=== PATIENT | male | born 1960 | race Caucasian/White ===

== ENCOUNTER 2020-02-28 01:36 | Inpatient (IN) | payer OTHER ==
[~2020-02-28] VITALS: Ht 180.3 cm; Wt 91.8 kg
[2020-02-28] VITALS (12 sets, daily range): BP systolic 116–149; BP diastolic 59–87
[~2020-02-28 01:36] MED LIST: ATEN100T88 PO
--- NOTE | 2020-02-28 02:00 | NUR ---
YUNI CONCEPCION admitted to room 410-1, with an admitting diagnosis of POST CVA , on 02/28/20 from [facility] ED via EMS, accompanied by EMS AND DRAWER LINER . YUNI CONCEPCION introduced to surroundings, call light, bed controls, phone, TV, temperature control, lights, meal times, smoking policy, visitor policy, side rail policy, bathrooms and showers. Patient Rights given to patient in the handbook.YUNI CONCEPCION verbalizes understanding that [facility] is not responsible for the loss or damage to any personal effects or valuables that are kept in the patients posession during their hospitalization.
[2020-02-28 05:39] LABS: HEMOGLOBIN 13.2 g/dL (13.3-17.7); MEAN PLATELET VOLUME 9.9 fL (9.0-12.2); WHITE BLOOD COUNT 5.8 10^3/uL (4.3-11.0)
[2020-02-28 05:52] LABS: ALBUMIN 3.8 GM/DL (3.2-4.5); CHLORIDE 110 MMOL/L (98-107); POTASSIUM 3.8 MMOL/L (3.6-5.0); SODIUM 142 MMOL/L (135-145)
[2020-02-28 05:53] LABS: CALCIUM 9.9 MG/DL (8.5-10.1)
[2020-02-28 05:54] LABS: TRIGLYCERIDES 162 MG/DL (<150); VLDL CHOLESTEROL 32 MG/DL (5-40)
[2020-02-28 05:55] LABS: GLUCOSE 90 MG/DL (70-105); TOTAL PROTEIN 6.6 GM/DL (6.4-8.2)
[2020-02-28 05:56] LABS: CARBON DIOXIDE 22 MMOL/L (21-32)
[2020-02-28 05:57] LABS: BILIRUBIN,TOTAL 0.6 MG/DL (0.1-1.0)
[2020-02-28 05:58] LABS: ALKALINE PHOSPHATASE 74 U/L (40-136); CREATININE SERUM 1.07 MG/DL (0.60-1.30); GFR ESTIMATED > 60
[2020-02-28 05:59] LABS: CHOLESTEROL 133 MG/DL (< 200)
[2020-02-28 06:00] LABS: BUN/CREATININE RATIO 12
[2020-02-28 06:01] LABS: ALANINE AMINOTRANSFERASE 27 U/L (0-55); HDL CHOLESTEROL 25 MG/DL (40-60)
[2020-02-28] MEDS ORDERED: FLU QUADRIvalent (3YOA+) 60 mcg/0.5 ml 2020-21 (AFLURIA) IM ONE (06:15)
[2020-02-28] MEDS ORDERED: LACTATED RINGERS 1,000 ML IV ONE (06:34)
--- NOTE | 2020-02-28 06:36 | NUR ---
DR. GOMEZ NOTIFIED OF PT'S DVT SCORE. NEW ORDERS RECEIVED: LOVENOX 40MG DAILY-IF NO CONTRAINDICATION, LR @75MLS/HR
[2020-02-28] MEDS: LACTATED RINGERS 1,000 ML IV SCH ×2 (06:40→20:30)
[2020-02-28] MEDS: ENOXAPARIN 40 MG/0.4 ML (LOVENOX) SYR SC SCH (09:06)
--- NOTE | 2020-02-28 10:41 | History & Physical-Hospitalist ---
History of Present Illness HPI/Chief Complaint Pt is a 59yoCM with a PMH of HTN, HLD, and previous stroke who presented to the ER due to right sided weakness. He states it started yesterday and they thought it was due to Li's Palsy but as it progressed they elected to seek evaluation in the ER. CT head was done and was negative for acute stroke. He was admitted h ere for further evaluation. He reports symptoms are the same and not progressing. He has a history of previous stroke without much residual deficit. He has no other complaints. BETH at bedside states there are not active cases of COVID at the facility and haven't been for over two weeks. Source: patient Date Seen 02/28/20 Time Seen by a Provider: 10:27 Attending Physician Micki Whitley MD PCP No,Local Physician Referring Physician Date of Admission Feb 28, 2020 at 02:00 Home Medications & Allergies Home Medications Reviewed patient Home Medication Reconciliation performed by pharmacy medication reconciliations electro mechanical technician and/or nursing. Patients Allergies have been reviewed. Allergies Allergies Coded Allergies Codeine (Verified Allergy11/04/12) Past Bwlbywb-Uxipfi-Mypcjm Hx Past Med/Social Hx: Reviewed Nursing Past Med/Soc Hx Patient Social History Living Status: inmate Alcohol Use: Denies Use Recreational Drug Use: No Recent Foreign Travel: No Contact w/other who traveled: No Recent Infectious Disease Expo: No Immunizations Up To Date Tetanus Booster (TDap): More than 5yrs Pediatric: No Past Medical History Cardiac: High Cholesterol, Hypertension Neurological: Stroke Reproductive: No Sexually Transmitted Disease: No HIV/AIDS: No Endocrine: Hyperthyroidism Adverse Reaction to Blood Mehta: No Family History Patient reports no known family medical history. Review of Systems Constitutional: No chills, No fever Respiratory: No cough, No short of breath Cardiovascular: No chest pain, No palpitations Gastrointestinal: No abdominal pain, No constipation, No diarrhea, No nausea, No vomiting Genitourinary: No discharge, No dysuria Musculoskeletal: see HPI Skin: no symptoms reported Psychiatric/Neurological: See HPI Physical Exam Physical Exam Vital Signs Vital Signs - First Documented Capillary Refill : Less Than 3 Seconds Height, Weight, BMI Height: '" Weight: lbs. oz. kg; 27.59 BMI Method:Estimated General Appearance: No Apparent Distress, WD/WN HEENT: PERRL/EOMI, Moist Mucous Membranes Respiratory: Lungs Clear, No Accessory Muscle Use, No Respiratory Distress Cardiovascular: Regular Rate, Rhythm, No Murmur Gastrointestinal: Normal Bowel Sounds, Non Tender, Soft Extremity: Normal Capillary Refill, No Calf Tenderness, No Pedal Edema Neurologic/Psychiatric: Alert, Oriented x3, No Motor/Sensory Deficits, Normal Mood/Affect; No Facial Droop, No Sensory Deficit Skin: Normal Color, Warm/Dry Results Results/Procedures Labs Laboratory Tests 02/28/20 05:29 Patient resulted labs reviewed. 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 Cardiology consulted for loop recorder tomorrow HTN HLD Continue home meds DVT ppx: Lovenox Diagnosis/Problems Diagnosis/Problems (1) Right sided weakness Status: Acute (2) HLD (hyperlipidemia) Qualifiers: Hyperlipidemia type: unspecified Qualified Codes: E78.5 - Hyperlipidemia, unspecified (3) Hypertension Status: Chronic Qualifiers: Hypertension type: essential hypertension Qualified Codes: I10 - Essential (primary) hypertension (4) History of CVA (cerebrovascular accident) Clinical Quality Measures DVT/VTE Risk/Contraindication: Risk Factor Score Per Nursin RFS Level Per Nursing on Admit: 2=Moderate KAYCEE ALANIS MD Feb 28, 2020 10:41
--- NOTE | 2020-02-28 10:46 | NUR ---
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 MAVERICK. Right eyelid is unable to open completed on command from pt. Addendum: 02/28/20 at 1047 by ANGE NG RN Amended: Links added.
--- NOTE | 2020-02-28 11:05 | Diagnostic Imaging Report ---
PROCEDURE: US carotid duplex, bilateral. TECHNIQUE: Multiple real-time grayscale images were obtained over the carotid arteries in various projections, bilaterally. Additional spectral analysis and color Doppler duplex images were also obtained. INDICATION: CVA. FINDINGS: The previous carotid Doppler exam of 11/04/2012 failed to show any sign of a hemodynamically significant stenosis of either carotid system. On this study, there is only mild hard and soft plaque formation in both carotid bifurcations. The flow velocities failed to show any sign of a hemodynamically significant stenosis of either carotid system. Both vertebral arteries were identified and there was antegrade flow bilaterally. IMPRESSION: There is mild atherosclerotic disease involving both carotid systems but there is still no evidence for a hemodynamically significant stenosis of the common or internal carotid arteries. Parameters based on the consensus panel Khanna-Scale and Doppler ultrasound criteria published April 2003, Radiology, Volume 229. DOPPLER (peak systolic velocity M/S Right Left CCA .68 .75 ICA Proximal .83 .80 ICA Mid 1.2 .91 ICA Distal 1.5 .92 RATIO 1.7 1.2 ECA .83 .86 VERT .40 .37 Dictated by: Dictated on workstation # [id number]
--- NOTE | 2020-02-28 11:18 | Diagnostic Imaging Report ---
PROCEDURE: MR imaging of the brain without contrast. TECHNIQUE: Multiplanar, multisequence MR imaging of the brain was performed without contrast. INDICATION: Right-sided weakness. COMPARISON: MRI brain without and with IV contrast 11/04/2012. FINDINGS: Moderate generalized cerebral and cerebellar parenchymal volume loss. Moderate nonspecific T2 hyperintensities in the supratentorial white matter compatible with chronic small vessel ischemic change. No restricted water diffusion. No hemosiderin deposition or evidence of intracranial hemorrhage. Normal morphology including the major midline structures, sella, posterior fossa and cerebellar pontine angle. Normal intracranial flow voids. Postoperative changes in the globes. Mucosal thickening in the maxillary and ethmoid sinuses. The mastoids are clear. Normal bone marrow signal. IMPRESSION: 1. Age-appropriate parenchymal volume loss and chronic small vessel ischemic change. This is only mildly progressed since 2012. 2. No acute intracranial MRI findings. Dictated by: Dictated on workstation # [id number]
--- NOTE | 2020-02-28 11:55 | NUR ---
Visited with pt about smoking cessation. Pt states, "I don't smoke." [place] Handout and [facility] classes on smoking cessation given. reinforcement needed, will con't to monitor.
--- NOTE | 2020-02-28 11:58 | Occupational Therapy Eval ---
OT Evaluation-General/PLF Medical Diagnosis Admission Date Feb 28, 2020 at 02:00 Medical Diagnosis: R side weakness with negative CVA Onset Date: Feb 28, 2020 Therapy Diagnosis Therapy Diagnosis: Decreased ADL status Precautions Precautions/Isolations: Standard Precautions Weight Bear Status Weight Bearing Restriction: Weight Bearing/Tolerated Referral Physician: Loyd Referral Reason: Activity Tolerance, Self Care, Evaluation/Treatment, Strengthening/ROM Medical History Additional Medical History HTN, HLD, previous CVA affecting R eye Current History Pt admits with R side weakness. Negative acute stroke Reviewed History: Yes Social History Home: correctional facility Current Living Status: ADL-Prior Level of Function SCALE: Activities may be completed with or without assistive devices. 6-Ogydvfsxve-txkuugb completes the activity by him/herself with no assistance fr om a helper. 5-Set-up or Clean-up Assistance-helper sets up or cleans up; patient completes activity. [place] assists only prior to or following the activity. 4-Supervision or Touching Assistance-helper provides verbal cues and/or touching/steadying and/or contact guard assistance as patient completes activity. Assistance may be provided throughout the activity or intermittently. 3-Partial/Moderate Assistance-helper does LESS THAN HALF the effort. Eleva lifts, holds or supports trunk or limbs, but provides less than half the effort. 2-Substantial/Maximal Assistance-helper does MORE THAN HALF the effort. Eleva lifts or holds trunk or limbs and provides more than half the effort. 9-Rzkhdyfud-qllxti does ALL the effort. Patient does none of the effort to complete the activity. Or, the assistance of 2 or more helpers is required for the patient to complete the activity. If activity was not attempted, code reason: 7-Patient Refused. 9-Not Applicable-not attempted and the patient did not perform the activity before the current illness, exacerbation or injury. 10-Not Attempted due to Environmental Limitations-(lack of equipment, weather restraints, etc.). 88-Not Attempted due to Medical Conditions or Safety Concerns. ADL PLOF Comments Pt was IND without use of AD/ AE. Self Care: Independent Functional Cognition: Independent Occupation: inmate Drive Self: No OT Current Status Subjective Pt seen in bed, R eye closed and R side of mouth slightly less movement. Pt requires encouragement to vocalize, during vocalization pt has decreased movement of R side of face. Pt alert/ oriented x3. Pt agrees to OT tx. Pt acco mpanied by flight radio officer throughout tx. Mental Status/Objective Patient Orientation: Person, Place, Situation Attachments: IV Current Upper Extremity ROM BUE WFL R UE slightly less forward flexion/ scaption AROM Upper Extremity Coordination WFL BUE, opposition WFL Upper Extremity Sensation No c/o parenthesia/ change in sensation. Upper Extremity Strength WFL BUE (4/5 bilaterally) slat basket maker strength: R slightly weaker than L Edema: none noted. ADL-Treatment Eating (QC): 6 (per pt, ate pancakes this am with IND.) On/Off Footwear (QC): 4 (SBA EOB) Other Treatments Pt agrees to OT. Pt laying supine watching TV. Pt able to find remote with L hand and mute TV after asking. Pt completes cervical range WFL. Pt tracks finger in all planes WFL, states slight dizziness. Pt states droop of eye is new. Per notes, resulted from previous CVA. Pt supine to sit SBA. Pt doffs/ dons R sock with CGA-SBA with noted difficulty reaching ankle to opposite knee. Pt able to utilize both hands in unison to doff/ don sock. Pt sit to stand CGA, ambulates in russo with straight-leg walking without AD and with CGA-SBA throughout. See PT notes for specifics. Pt stands in front of toilet, able to manipulate pants and then states no need for urination. Good balance in stance druing this task and automatic use of BUEs during all tasks. Pt sits in recliner, completes MMT bilaterally with slight decrease of ROM/ strength noted in RUE compared to LUE. No tone noted. Pt's vitals assessed: 63 HR, 135/77, and 96% 02. All needs met, call light in reach, pt in chair with officer present. Education OT Patient Education: Correct positioning, Progress toward Goal/Update tx plan, Purpose of tx/functional activities, Safety issues Teaching Recipient: Patient Teaching Methods: Demonstration, Discussion Response to Teaching: Verbalize Understanding, Return Demonstration OT Longterm Goals Roving Machine Operator Goals Time Frame: Mar 04, 2020 Eating (QC): 6 Oral Hygiene (QC): 6 Toileting Hygiene (QC): 6 Shower/Bathe Self (QC): 6 Upper Body Dressing (QC): 6 Lower Body Dressing (QC): 6 On/Off Footwear (QC): 6 Additional Goals: 1-Demonstrate ADL Tasks, 2-Verbalize Understanding, 3- ImproveStrength/Dorie 1=Demonstrate adherence to instructed precautions during ADL tasks. 2=Patient will verbalize/demonstrate understanding of assistive devices/modifications for ADL. 3=Patient will improve strength/tolerance for activity to enable patient to perform ADL's. OT Education/Plan Problem List/Assessment Assessment: Decreased Activ Tolerance, Impaired I ADL's Discharge Recommendations Plan/Recommendations: Continue POC Therapy Discharge Recommendati: Other, See Comments (d/c of therapy post-d/c. return to previous living.) Treatment Plan/Plan of Care Treatment,Training & Education: Yes Patient would benefit from OT for education, treatment and training to promote independence in ADL's, mobility, safety and/or upper extremity function for ADL's. Plan of Care: ADL Retraining, Functional Mobility, UE Funct Exercise/Act Treatment Duration: Mar 04, 2020 Frequency: 5 times per week Estimated Hrs Per Day: .25 hour per day Agreement: Yes Rehab Potential: Good Time/GCodes Start Time: 11:35 Stop Time: 11:50 Total Time Billed (hr/min): 15 Billed Treatment Time 1RADHA (15) JENNA SALCEDO OTR Feb 28, 2020 11:58
--- NOTE | 2020-02-28 12:02 | Physical Therapy Evaluation ---
PT Evaluation-General Medical Diagnosis Admission Date Feb 28, 2020 at 02:00 Medical Diagnosis: CVA Onset Date: Feb 28, 2020 Therapy Diagnosis Therapy Diagnosis: debility/weakness Precautions Precautions/Isolations: Fall Prevention, Standard Precautions Referral Physician: Loyd Reason for Referral: Evaluation/Treatment Medical History Pertinent Medical History: CVA (2013), HTN Current History transfer via ambulance from [facility] secondary to probable CVA Reviewed History: Yes Social History Home: [facility] Prior Prior Level of Function SCALE: Activities may be completed with or without assistive devices. 4-Kqdbvixcgd-ksmdrko completes the activity by him/herself with no assistance from a helper. 5-Set-up or Clean-up Assistance-helper sets up or cleans up; patient completes activity. [place] assists only prior to or following the activity. 4-Supervision or Touching Assistance-helper provides verbal cues and/or touching/steadying and/or contact guard assistance as patient completes activity. Assistance may be provided throughout the activity or intermittently. 3-Partial/Moderate Assistance-helper does LESS THAN HALF the effort. [place] lif ts, holds or supports trunk or limbs, but provides less than half the effort. 2-Substantial/Maximal Assistance-helper does MORE THAN HALF the effort. [place] lifts or holds trunk or limbs and provides more than half the effort. 3-Juytvnysf-sneqmy does ALL the effort. Patient does none of the effort to complete the activity. Or, the assistance of 2 or more helpers is required for the patient to complete the activity. If activity was not attempted, code reason: 7-Patient Refused. 9-Not Applicable-not attempted and the patient did not perform the activity before the current illness, exacerbation or injury. 10-Not Attempted due to Environmental Limitations-(lack of equipment, weather restraints, etc.). 88-Not Attempted due to Medical Conditions or Safety Concerns. Bed Mobility: 6 Transfers (B,C,W/C): 6 Gait: 6 Stairs: 6 Indoor Mobility (Ambulation): Independent Stairs: Independent Prior Devices Use: None PT Evaluation-Current Subjective Patient states he can't use his right UE, however, is able to move it when distracted. Pain Numeric Pain Scale: 0-No Pain Location: No Pain Reported Objective Patient Orientation: Normal For Age Attachments: IV ROM/Strength ROM Lower Extremities bilateral LE WFL Strength Lower Extremities 4/5 grossly bilateral LE Integumentary/Posture Integumentary refer to nursing notes Bowel Incontinence: No Bladder Incontinence: No Posture WFL Neuromuscular (Tone, Coordination, Reflexes) grossly intact Sensory Hearing: Functional Transfers Roll Left to Right (QC): 6 Lying to Sitting/Side of Bed(Q: 6 Sit to Stand (QC): 5 Chair/Xif-xh-Uaqon Xfer(QC): 5 Gait Does the Patient Walk?: Yes Mode of Locomotion: Walk Anticipated Mode of Locomotion: Walk Walk 10 feet (QC): 5 Walk 50 ft with 2 Turns(QC): 5 Walk 150 ft (QC): 5 Gait Assistive Device: None Comments/Gait Description WBOS with stiff LE gait sequence initially to normal gait pattern during ambulation Wheelchair Training Does the Pt Use a Wheelchair?: No Balance Sitting Static: Normal Sitting Dynamic: Normal Standing Static: Normal Standing Dynamic: Normal Assessment/Needs 59 y.o. male, will be seen x 2 sessions to ensure safe mobility with ambulation. Patient is currently incarcerated and will have supervision at facility if needed, upon dismissal per deputy report. Rehab Potential: Fair PT Short Term Goals Short Term Goals Time Frame: Feb 29, 2020 Roll Left & Right: 6 Sit to lyin Lying to sitting on side of be: 6 Sit to stand: 6 Chair/zkb-zd-uruky transfer: 6 Walk 10 feet: 6 Walk 50 feet with two turns: 6 Walk 150 feet: 6 PT Plan Treatment/Plan Treatment Plan: Continue Plan of Care Treatment Plan: Education, Functional Activity Dorie, Gait, Safety, Therapeutic Exercise Treatment Duration: Feb 29, 2020 Frequency: 2 times per week Estimated Hrs Per Day: .25 hour per day Time/GCodes Time In: 1130 Time Out: 1143 Total Billed Treatment Time: 13 Total Billed Treatment 1 visit EVMod 13 min TRU DEL CASTILLO PT Feb 28, 2020 12:02
--- NOTE | 2020-02-28 13:18 | ST Dysphagia Evaluation ---
Speech Evaluation-General Medical Diagnosis R side weakness with negative CVA Onset Date: Feb 28, 2020 Therapy Diagnosis Therapy Diagnosis: Oropharyngeal Dysphagia Precautions Precautions: Aspiration Referral Referring Physician: Dr. Harp Medical History Pertinent Medical History: CVA (2013), HTN Reviewed History: Yes Social History Home: Current Living Status: Speech PLF/Current-Dysphagia Prior Level of Function Patient was transferred to [facility] due to CVA like symptoms. Patient was independent prior level, although he is reported to have had a previous CVA, which the patient states was in 2012. Cognitive Status Patient Orientation: Person, Place, Situation Oral Motor Skills Dentition: Natural Ability to Follow Directions: Good Patient was NPO pending BDE Oral Expression Ability: No Impairment Face Facial Symmetry: Asymmetrical Oral-Facial Assessment Oral-Facial Dentition: Normal Labial Seal Description: Droops Right Smile: Droops Right Puff Cheeks: Reduced Strength Lingual Protrusion: Abnormal Lingual ROM: Abnormal Lingual Strength: Abnormal Pharynx Velopharyngeal Move.: Weak on Right Volitional Dry Swallow: Yes Voluntary Cough: Yes Can Clear Throat Volitionally: Yes Dysphagia Evaluation Consistencies Presented: Thin Liquid, Mechanical Soft, Pureed Patient was on a "soft" diet prior due to previous CVA Oral phase is within normal range of function for presentations given. Pharyngeal phase is within normal range of function for presentations given. Dietary Recommendations: Mechanical Soft Liquid Recommendations: Thin Swallowing Precautions: Alternate Liquids/Solids, Liquids from Straw, Small Bites and Sips, Sitting Upright 90 Degrees, Sitting 90 Degrees 30 Post Intake Dysphagia Evaluation Summary Patient is a 59 y/o male who presented to the hospital due to CVA like symptoms. MRI was negative at this time. Patient does have a history of CVA 7 years ago which has left some residual weakness. Patient was given trials of thin via 1/2 tsp x2 and small sips via straw x2 without difficulty noted. Patient was also given 1/2 tsp bite size of puree and mechanical soft without difficulty. Patient was previously on soft diet level due to residual CVA affects. No regular texture was given during evaluation. Patient is recommended for a Dysphagia II diet with thin liquids. Patient was educated on sitting up for all intake including medications. Patient was also educated on alternating food/drink of 2:1. Patient's diet level recommendations were given to nursing as well as written on the white board in his room. Barriers to Learning Patient's previous CVA Speech-Plan Patient/Family Goals Patient/Family Goals: Patient will return to the facility upon discharge. Treatment Plan Speech Therapy Treatment Plan: Discontinue ST Treatment Duration: Mar 04, 2020 Frequency: 1 time per week Estimated Hrs Per Day: .5 hour per day Rehab Potential: Good Barriers to Learning: Patient's previous CVA Pt/Family Agrees to Plan: Yes Safety Risks/Education Teaching Recipient: Patient Teaching Methods: Discussion Response to Teaching: Verbalize Understanding Education Topics Provided: Safety of oral intake, diet level Time Speech Therapy Time In: 13:00 Speech Therapy Time Out: 13:20 Total Billed Time: 20 Billed Treatment Time 1, PAULA DYST KIRTI Lao Feb 28, 2020 13:18
[2020-02-28] MEDS: ACETAMINOPHEN 325 MG TABLET PO PRN ×2 (13:20→21:08)
--- NOTE | 2020-02-28 14:51 | NUR ---
IRF Evaluation Determination: Denied Chart review complete and it appears patient is ambulating (150ft, no AD) with set up, completing bed mobility with independence, as well as completing LE dress with CGA/SBA; therefore, patient does not require intensive therapies. Thank you for this referral.
--- NOTE | 2020-02-28 15:24 | Consultation-Cardiology ---
HPI-Cardiology Cardiology Consultation: Date of Consultation 02/28/20 Date of Admission Attending Physician Micki Whitley MD Admitting Physician No,Local Physician Consulting Physician Jeff EPPERSON MD HPI: Time Seen by a Provider: 11:00 Chief Complaint: Stroke This is a 59-year-old gentleman with history of hypertension, hyperlipidemia and previous stroke. He presented to the ER with right-sided weakness. He has history of previous stroke without much residual deficit. The patient denies any palpitations, chest pain or shortness of breath. He denies any syncope or near syncope. He denies active smoking. Pertinent family history is negative for premature CAD. Review of Systems-Cardiology Review of Systems Constitutional: As described under HPI; No As described under HPI, No no symptoms reported, No chills, No fever, No lightheadedness Eyes: No As described under HPI, No no symptoms reported, No blindness, No blurred vision, No contact lenses, No drainage, No decreased acuity, No foreign body sensation, No pain, No vision change Ears/Nose/Throat: No As described under HPI, No no symptoms reported, No chronic hearing loss, No ear discharge, No ear pain, No nasal drainage, No ulcerations Respiratory: No no symptoms reported; As described under HPI; No As described under HPI, No cough, No orthopnea, No shortness of breath, No SOB with excertion Cardiovascular: No no symptoms reported; As described under HPI; No As described under HPI, No chest pain, No edema, No irregular heart rate, No lightheadedness, No palpitations Gastrointestinal: No no symptoms reported, No As described under HPI, No abdomen distended, No abdominal pain, No blood streaked bowels, No constipation, No diarrhea, No nausea, No vomiting, No stool coloration changes Genitourinary: No As described under HPI, No burning, No dysuria, No discharge, No frequency, No flank pain, No hematuria, No urgency Skin: No rash, No skin related problems, No ulcerations Psychiatric/Neurological: As described under HPI, weakness, focal weakness; No anxiety, No depression, No seizure, No syncope Hematologic: No bleeding abnormalities GIS-Mdeflj-Xtdjgq Hx Patient Social History Living Status: inmate Alcohol Use: Denies Use Recreational Drug Use: No Recent Foreign Travel: No Recent Infectious Disease Expo: No Immunizations Up To Date Tetanus Booster (TDap): More than 5yrs Past Medical History PMH As described under Assessment. Family Medical History Family History: Patient reports no known family medical history. Allergies and Home Medications Allergies Coded Allergies: Codeine (Verified Allergy, 11/04/12) Home Medications Atenolol 100 Mg Tablet, 1 EACH PO DAILY, (Reported) Patient Home Medication List Home Medication List Reviewed: Yes Physical Exam-Cardiology Physical Exam Vital Signs/I&O 02/28/20 02/28/20 02/28/20 02/28/20 03:42 08:00 08:45 09:40 Temp 36.2 36.4 Pulse 57 55 57 Resp 19 18 B/P (MAP) 137/72 (93) 122/76 (91) Pulse Ox 95 94 O2 Delivery Room Air Room Air Room Air 02/28/20 02/28/20 02/28/20 02/28/20 11:35 11:35 12:00 12:05 Pulse 54 54 70 70 Resp 18 18 18 B/P (MAP) 125/75 (92) 125/75 127/82 (97) 127/82 Pulse Ox 97 97 95 95 O2 Delivery Room Air Room Air 02/28/20 02/28/20 02/28/20 02/28/20 12:20 12:20 12:35 12:35 Pulse 67 67 68 68 Resp 18 18 B/P (MAP) 149/77 (101) 149/77 146/87 (106) 146/87 Pulse Ox 95 95 94 94 O2 Delivery Room Air Room Air 02/28/20 02/28/20 12:41 12:45 Pulse 65 55 Resp 18 B/P (MAP) 143/82 Pulse Ox 95 Capillary Refill : Less Than 3 Seconds Constitutional: appears stated age; No apparent distress; well-developed, well- nourished HEENT: PERRL; No discharge; hearing is well preserved, oral hygience is good; No ulceration, No xanthelasmas are seen Neck: No carotid bruit; carotid pulses are 2 + bilaterally Respiratory: chest is bilaterally symmetric, lungs clear to auscultation Cardiovascular: regular rate-rhythm, S1 and S2; No diastolic murmur, No systolic murmur Gastrointestinal: soft, audible bowel sounds; No spleenomegaly Rectal: deferred Extremities: normal range of motion, non-tender, normal inspection; No clubbing, No cyanosis; no lower extremity edema bilateral; No significant edema Neurologic/Psychiatric: alert, normal mood/affect, oriented x 3, power is 5/5 both on sides Skin: normal color, warm/dry; No rash, No ulcerations Data Review Labs Laboratory Tests 02/28/20 05:29: White Blood Count 5.8, Red Blood Count 4.17L, Hemoglobin 13.2L, Hematocrit 39L, Mean Corpuscular Volume 94, Mean Corpuscular Hemoglobin 32, Mean Corpuscular Hemoglobin Concent 34, Red Cell Distribution Width 13.8, Platelet Count 214, Mean Platelet Volume 9.9, Sodium Level 142, Potassium Level 3.8, Chloride Level 110H, Carbon Dioxide Level 22, Anion Gap 10, Blood Urea Nitrogen 13, Creatinine 1.07, Estimat Glomerular Filtration Rate > 60, BUN/Creatinine Ratio 12, Glucose Level 90, Calcium Level 9.9, Corrected Calcium 10.1, Total Bilirubin 0.6, Aspartate Amino Transf (AST/SGOT) 24, Alanine Aminotransferase (ALT/SGPT) 27, Alkaline Phosphatase 74, Total Protein 6.6, Albumin 3.8, Triglycerides Level 162H, Cholesterol Level 133, LDL Cholesterol Direct 80, VLDL Cholesterol 32, HDL Cholesterol 25L A/P-Cardiology Assessment/Admission Diagnosis Possible acute stroke, Previous history of stroke, Hypertension, Hyperlipidemia, Mild anemia, Elevated triglycerides level Plan Possible acute stroke, check carotid ultrasound. Telemetry. Echocardiogram showed normal LV function with negative bubble study. If telemetry is negative for atrial fibrillation and carotid ultrasound does not show any significant carotid disease, the patient may be labeled as cryptogenic stroke and will require moth exterminator monitoring for atrial fibrillation and an implantable loop recorder will be recommended. Previous history of stroke, Hypertension, continue atenolol. Hyperlipidemia, start Lipitor. Mild anemia, defer to the primary team. Elevated triglycerides level, diet and exercise. Thank you for your consultation. Please call me if you have any questions. Dandy Epperson MD, FACP, FACC, FSCAI, FHRS, CCDS Interventional Cardiology Cardiac Electrophysiology Vascular Medicine and Endovascular Interventions Clinical Quality Measures DVT/VTE Risk/Contraindication: Risk Factor Score Per Nursin RFS Level Per Nursing on Admit: 2=Moderate Jeff EPPERSON MD Feb 28, 2020 15:24
[2020-02-28] MEDS ORDERED: OMEP40CA27 PO (15:41)
[2020-02-28] MEDS ORDERED: LEVO112T55 PO (15:41)
[2020-02-28] MEDS ORDERED: SENN-234 PO (15:41)
[2020-02-28] MEDS ORDERED: ALLO100T PO (15:41)
[2020-02-28] MEDS ORDERED: LISI10TA2 PO (15:41)
[2020-02-28] MEDS ORDERED: BUME0.5T5 PO (15:41)
[2020-02-28] MEDS ORDERED: LOVA20TA2 PO (15:41)
--- NOTE | 2020-02-28 15:41 | NUR ---
THE MED REC WAS COMPLETED USING THE MED LIST FROM [facility]- WHEN I CALLED [facility] THEY LET ME KNOW HE [facility] AND THEREFORE THE SNF DISPENSES THE MEDICATIONS. I WILL ATTACH THE MED LIST FROM [facility] TO HIS CHART
[2020-02-28] MEDS ORDERED: MILK OF MAGNESIA 400 MG/5 ML 30 ML UDC PO PRN (21:45)
[2020-02-28] MEDS ORDERED: BENZONATATE 100 MG (TESSALON) CAPSULE PO PRN (21:45)
[2020-02-28] MEDS ORDERED: MELATONIN 3 MG TABLET PO PRN (21:45)
[2020-02-28] MEDS ORDERED: ONDANSETRON 4 MG/2 ML (SDV) Z0FRAN IV PRN (21:45)
[2020-02-28] MEDS ORDERED: ANTACID SUSP 30 ML UDC (MYLANTA) PO PRN (21:45)
[2020-02-29 04:40] VITALS: BP 135/63
[2020-02-29 06:04] LABS: HEMOGLOBIN 13.2 g/dL (13.3-17.7); MEAN PLATELET VOLUME 10.5 fL (9.0-12.2); WHITE BLOOD COUNT 4.3 10^3/uL (4.3-11.0)
[2020-02-29 06:19] LABS: CHLORIDE 110 MMOL/L (98-107); POTASSIUM 4.1 MMOL/L (3.6-5.0); SODIUM 142 MMOL/L (135-145)
[2020-02-29 06:20] LABS: ALBUMIN 3.7 GM/DL (3.2-4.5)
[2020-02-29 06:21] LABS: CALCIUM 10.1 MG/DL (8.5-10.1); TRIGLYCERIDES 166 MG/DL (<150); VLDL CHOLESTEROL 33 MG/DL (5-40)
[2020-02-29 06:22] LABS: GLUCOSE 88 MG/DL (70-105); TOTAL PROTEIN 6.6 GM/DL (6.4-8.2)
[2020-02-29 06:23] LABS: CARBON DIOXIDE 24 MMOL/L (21-32)
[2020-02-29 06:24] LABS: BILIRUBIN,TOTAL 0.6 MG/DL (0.1-1.0)
[2020-02-29 06:26] LABS: ALKALINE PHOSPHATASE 72 U/L (40-136); GFR ESTIMATED > 60
[2020-02-29 06:27] LABS: BUN/CREATININE RATIO 13; CHOLESTEROL 135 MG/DL (< 200)
[2020-02-29 06:28] LABS: HDL CHOLESTEROL 24 MG/DL (40-60)
[2020-02-29 06:29] LABS: ALANINE AMINOTRANSFERASE 25 U/L (0-55)
[2020-02-29] MEDS ORDERED: LEVOTHYROXINE 112 MCG (LEVOTHROID) TAB PO SCH (06:30)
[2020-02-29 07:40] VITALS: BP 151/70
[2020-02-29] MEDS ORDERED: PANTOPRAZOLE 40 MG (PROTONIX) TAB PO SCH (09:00)
[2020-02-29] MEDS ORDERED: NON-FORMULARY MEDICATION 1 EA EA (Omeprazole 40 MG) PO SCH (09:00)
[2020-02-29] MEDS ORDERED: NON-FORMULARY MEDICATION 1 EA EA (Bumetanide 0.5 MG) PO SCH (09:00)
[2020-02-29] MEDS ORDERED: ALLOPURINOL 100 MG (ZYLOPRIM) TAB PO SCH (09:00)
[2020-02-29] MEDS ORDERED: BUMETANIDE 1 MG (BUMEX) TAB PO SCH (09:00)
[2020-02-29] MEDS ORDERED: SENNOSIDES 8.6 MG (SENOKOT) TAB PO SCH (09:00)
[2020-02-29] MEDS ORDERED: lisINopril 10 MG (PRINIVIL) TABLET PO SCH (09:00)
[2020-02-29] MEDS ORDERED: NON-FORMULARY MEDICATION 1 EA EA (Lovastatin 20 MG) PO SCH (09:00)
[2020-02-29] MEDS ORDERED: ASPIRIN E.C. 325 MG (ECOTRIN) TABLET PO SCH (09:00)
[2020-02-29] MEDS: LACTATED RINGERS 1,000 ML IV SCH (09:25)
[2020-02-29] MEDS: ENOXAPARIN 40 MG/0.4 ML (LOVENOX) SYR SC SCH (09:25)
[2020-02-29 11:15] VITALS: BP 135/80
--- NOTE | 2020-02-29 11:26 | Physical Therapy Daily Note ---
PT Daily Note-Current Subjective Pt sleeping, easily awakened and agreeable to ambulate. Denied pain. Mental Status Patient Orientation: Person, Place, Time, Situation Attachments: IV Transfers SCALE: Activities may be completed with or without assistive devices. 7-Vvaamjiajx-gaoyfku completes the activity by him/herself with no assistance from a helper. 5-Set-up or Clean-up Assistance-helper sets up or cleans up; patient completes activity. [place] assists only prior to or following the activity. 4-Supervision or Touching Assistance-helper provides verbal cues and/or touching/steadying and/or contact guard assistance as patient completes activity. Assistance may be provided throughout the activity or intermittently. 3-Partial/Moderate Assistance-helper does LESS THAN HALF the effort. [place] lifts, holds or supports trunk or limbs, but provides less than half the effort. 2-Substantial/Maximal Assistance-helper does MORE THAN HALF the effort. [place] lifts or holds trunk or limbs and provides more than half the effort. 8-Juxurqrig-shpqdq does ALL the effort. Patient does none of the effort to complete the activity. Or, the assistance of 2 or more helpers is required for the patient to complete the activity. If activity was not attempted, code reason: 7-Patient Refused. 9-Not Applicable-not attempted and the patient did not perform the activity before the current illness, exacerbation or injury. 10-Not Attempted due to Environmental Limitations-(lack of equipment, weather restraints, etc.). 88-Not Attempted due to Medical Conditions or Safety Concerns. Sit to Lying (QC): 6 Lying to Sitting/Side of Bed(Q: 6 Sit to Stand (QC): 5 Weight Bearing Right Lower Extremity: Right Full Weight Bearing Left Lower Extremity: Left Full Weight Bearing Gait Training Does the Patient Walk?: Yes Distance: 160 Walk 10 feet (QC): 5 Walk 50 ft with 2 Turns(QC): 5 Walk 150 ft (QC): 5 Gait Persons Needed: 1 Gait Assistive Device: None Pt initially ambulating with rigid (B) LE, wide CHANTEL with increased lateral sway but no maik LOB. After turning, Pt demonstrated more reciprocal gait with more narrow CHANTEL. Treatments Ambulation without AD. Pt returned to room with guard present, needs met. Assessment Current Status: Good Progress Pt tolerated well. Antalgic gait but no LOB. PT Short Term Goals Short Term Goals Time Frame: Feb 29, 2020 Roll Left & Right: 6 Sit to lyin Lying to sitting on side of be: 6 Sit to stand: 6 Chair/scs-br-kjwfx transfer: 6 Walk 10 feet: 6 Walk 50 feet with two turns: 6 Walk 150 feet: 6 PT Plan Problem List Problem List: Activity Tolerance, Functional Strength, Safety, Balance, Gait, Transfer Treatment/Plan Treatment Plan: Continue Plan of Care Treatment Plan: Education, Functional Activity Dorie, Functional Strength, Gait, Safety, Therapeutic Exercise Treatment Duration: Feb 29, 2020 Frequency: 2 times per week Estimated Hrs Per Day: .25 hour per day Patient and/or Family Agrees t: Yes Time/GCodes Time In: 900 Time Out: 910 Total Billed Treatment Time: 10 Total Billed Treatment 1, FA x 10' MERLENE JOHNSON DPFelipe Feb 29, 2020 11:26
--- NOTE | 2020-02-29 13:03 | Discharge Inst-Simple/Standard ---
Discharge Inst-Standard Patient Instructions/Follow Up Plan of Care/Instructions/FU: Please continue to take your medications as written. Please follow up with your primary care provider to follow up this hospital stay. Activity as Tolerated: Yes Discharge Diet: Soft Diet, Cardiac Diet Return to The Hospital For: Chest pain, shortness of breath, weakness, confusion, slurred speech, if you feel you are getting worse. KAYCEE ALANIS MD Feb 29, 2020 13:03
--- NOTE | 2020-02-29 13:09 | Discharge Summary ---
Diagnosis/Chief Complaint Date of Admission Feb 28, 2020 at 02:00 Date of Discharge Discharge Date: Feb 28, 2020 Admission Diagnosis Right sided weakness Primary Care No,Local Physician Discharge Diagnosis (1) Right sided weakness Status: Acute (2) HLD (hyperlipidemia) (3) Hypertension Status: Chronic (4) History of CVA (cerebrovascular accident) Discharge Summary Procedures/Consulations Dr Epperson- Cardiology Discharge Physical Exam Allergies: Coded Allergies: Codeine (Verified Allergy, 11/04/12) Vitals & I&Os Vital Signs Date Time Temp Pulse Resp B/P (MAP) Pulse Ox O2 Delivery O2 Flow Rate FiO2 02/29/20 15:48 36.6 69 18 125/74 (91) 94 Room Air General Appearance: No Apparent Distress, WD/WN Respiratory: Lungs Clear, No Respiratory Distress Cardiovascular: Regular Rate, Rhythm, No Murmur Neurologic/Psychiatric: Alert, Oriented x3, No Motor/Sensory Deficits Hospital Course Pt was admitted due to right sided weakness with facial droop concerned for a CVA. CT Head was negative and MRI was as well. Symptoms resolved on their own consistent with a TIA. PT/OT/TITLE OFFICER evaluated patient due to presentation and history of CVA. He did well but did require a soft diet. He was found to be positive for COVID antibodies but was completely asymptomatic while here and did not require isolation. TIA may be secondary to COVID sequela. [facility] to follow up with the physician there. Labs (last 24 hrs) Patient resulted labs reviewed. Pending Labs Imaging: Reviewed Imaging Report Discussion & Recommendations Discharge Planning: >30 minutes discharge planning Discharge Home Medications: Active Scripts Active Reported Levothyroxine Sodium 112 Mcg Tablet 112 Mcg PO DAILY Omeprazole 40 Mg Capsule.dr 40 Mg PO DAILY Lovastatin 20 Mg Tablet 20 Mg PO DAILY Senna (Sennosides) 8.6 Mg Tablet 8.6 Mg PO DAILY Lisinopril 10 Mg Tablet 10 Mg PO DAILY Allopurinol 100 Mg Tablet 100 Mg PO DAILY Bumetanide 0.5 Mg Tablet 0.5 Mg PO DAILY Instructions to patient/family Please see electronic discharge instructions given to patient. Clinical Quality Measures DVT/VTE Risk/Contraindication: Risk Factor Score Per Nursin RFS Level Per Nursing on Admit: 2=Moderate Problem Qualifiers (1) HLD (hyperlipidemia): Hyperlipidemia type: unspecified Qualified Codes: E78.5 - Hyperlipidemia, unspecified (2) Hypertension: Hypertension type: essential hypertension Qualified Codes: I10 - Essential (primary) hypertension KAYCEE ALANIS MD Feb 29, 2020 13:09
[2020-02-29] MEDS ORDERED: LIDOCAINE 1% INJ 20 ML 20 ML VIAL ONE ×2 (15:09→15:19)
[2020-02-29 15:48] VITALS: BP 125/74
--- NOTE | 2020-02-29 16:38 | NUR ---
PT HAD LOOP RECORDER PUT IN PLACE BY DR IRELAND AT BEDSIDE. PT GIVEN D/C INSTRUCTION AND SUMMARY OF STAY. PT SIGNED D/C PAPER. X RAY TECHNOLOGIST WITH PT WAS NOTIFIED OF INFO IN D/C PACKET AND TO MAKE AN APPOINTMENT WITH DR. IRELAND IN A WEEK. PT WAS GIVEN FOLDABLE CARD WITH LOOP RECORDER INFORMATION ON IT BY THIS RN. PCT PUSHED PT IN W/C AND X RAY TECHNOLOGIST WITH THEM TO ER EXIT. ALL OF HIS BELONGINGS WERE WITH OFFICER AND PT WAS SHACKLED.
--- NOTE | 2020-02-29 17:11 | Cardiology Progress Note ---
Cardiology SOAP Progress Note Subjective: no cardiac complaints. Objective: I&O/Vital Signs 02/29/20 02/29/20 02/29/20 02/29/20 07:00 07:40 08:00 11:15 Temp 36.2 36.6 Pulse 52 54 74 Resp 22 16 B/P (MAP) 151/70 (97) 135/80 (98) Pulse Ox 98 96 O2 Delivery Room Air Room Air Room Air 02/29/20 02/29/20 12:30 15:48 Temp 36.6 Pulse 66 69 Resp 18 B/P (MAP) 125/74 (91) Pulse Ox 94 O2 Delivery Room Air 02/29/20 00:00 Intake Total 2630 ml Output Total 1000 ml Balance 1630 ml Constitutional: appears stated age; No apparent distress; well-developed, well- nourished Respiratory: chest is bilaterally symmetric, lungs clear to auscultation Cardiovascular: regular rate-rhythm, S1 and S2; No diastolic murmur, No systolic murmur Gastrointestional: soft, audible bowel sounds; No spleenomegaly Extremities: normal range of motion, non-tender, normal inspection; No clubbing, No cyanosis; no lower extremity edema bilateral; No significant edema Neurologic/Psychiatric: alert, normal mood/affect, oriented x 3, power is 5/5 both on sides Skin: normal color, warm/dry; No rash, No ulcerations Results/Procedures: Labs Laboratory Tests 02/29/20 05:13: White Blood Count 4.3, Red Blood Count 4.20L, Hemoglobin 13.2L, Hematocrit 40, Mean Corpuscular Volume 95, Mean Corpuscular Hemoglobin 31, Mean Corpuscular Hemoglobin Concent 33, Red Cell Distribution Width 13.7, Platelet Count 219, Mean Platelet Volume 10.5, Sodium Level 142, Potassium Level 4.1, Chloride Level 110H, Carbon Dioxide Level 24, Anion Gap 8, Blood Urea Nitrogen 14, Creatinine 1.10, Estimat Glomerular Filtration Rate > 60, BUN/Creatinine Ratio 13, Glucose Level 88, Calcium Level 10.1, Corrected Calcium 10.3H, Total Bilirubin 0.6, Aspartate Amino Transf (AST/SGOT) 22, Alanine Aminotransferase (ALT/SGPT) 25, Alkaline Phosphatase 72, Total Protein 6.6, Albumin 3.7, Triglycerides Level 166H, Cholesterol Level 135, LDL Cholesterol Direct 82, VLDL Cholesterol 33, HDL Cholesterol 24L A/P: Assessment/Dx: Possible acute stroke, Previous history of stroke, Hypertension, Hyperlipidemia, Mild anemia, Elevated triglycerides level Plan: Possible acute stroke, check carotid ultrasound. Telemetry. Echocardiogram showed normal LV function with negative bubble study. elevated is negative for atrial fibrillation. Carotid ultrasound shows mild bilateral plaque. 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 Long-term surveillance of atrial fibrillation is recommended. Implantable loop recorder is recommended. Previous history of stroke, Hypertension, continue atenolol. Hyperlipidemia, start Lipitor. Mild anemia, defer to the primary team. Elevated triglycerides level, diet and exercise. Thank you for your consultation. Please call me if you have any questions. Dandy Epperson MD, FACP, FACC, FSCAI, FHRS, CCDS Interventional Cardiology Cardiac Electrophysiology Vascular Medicine and Endovascular Interventions Jeff EPPERSON MD Feb 29, 2020 17:11
--- NOTE | 2020-02-29 17:12 | Implantation of Loop Monitor ---
Implant of Loop Monitior PROCEDURE PHYSICIAN: Dandy Epperson MD IMPLANTATION OF LOOP MONITOR REPORT DATE OF PROCEDURE: 02/29/20 PERFORMING PHYSICIAN: Dr. Shaun Epperson. INDICATION: cryptogenic stroke,Long-term surveillance of atrial fibrillation PREOP DIAGNOSIS: cryptogenic stroke,Long-term surveillance of atrial fibrillation POSTOP DIAGNOSIS: cryptogenic stroke, s/p implantation of loop recorder. PROCEDURE DETAILS: The patient is a 59 male with history of cryptogenic stroke. Therefore implantable loop recorder was discussed and agreed with the patient. Informed consent was taken. All risks and complications were discussed at length. The patient was draped and prepped in the usual sterile fashion. Local anesthesia was lidocaine, which was given in the substernal area close to the 4th intercostal space. Loop monitor was implanted according to the protocol. Steri- Strips were placed at the end of the procedure. There were no complications and the patient tolerated the procedure well. The device was interrogated with a voltage of 0.13 mV. ANESTHESIA: Local anesthesia with lidocaine. COMPLICATIONS: None CONTRAST/FLUOROSCOPY: None CONCLUSION: 1. Successful implantation of loop monitor for cryptogenic stroke. 2. No complication and the patient tolerated the procedure well. Dandy Epperson MD, [facility] Cardiac Electrophysiology Jeff EPPERSON MD Feb 29, 2020 17:12
[2020-02-29] MEDS ORDERED: SIMvastatin 10 MG (ZOCOR) TAB PO SCH (21:00)
== END 2020-02-29 16:30 | DRG 42 ==
LOC: 4TH 02:00
PROVIDERS: ADMIT Internal Medicine; ATTEND Internal Medicine
PROC: 0JH632Z Insertion of Monitoring Device into Chest Subcutaneous Tissue and Fascia, Percutaneous Approach (ICD-10-PCS; principal; 2020-02-29)
DX: G45.9 Transient cerebral ischemic attack, unspecified (principal); B94.8 Sequelae of other specified infectious and parasitic diseases; Z86.73 Personal history of transient ischemic attack (TIA), and cerebral infarction without residual deficits; I10 Essential (primary) hypertension; E78.5 Hyperlipidemia, unspecified; E78.00 Pure hypercholesterolemia, unspecified; E05.90 Thyrotoxicosis, unspecified without thyrotoxic crisis or storm; D64.9 Anemia, unspecified; E78.1 Pure hyperglyceridemia; Z23 Encounter for immunization
CPT/HCPCS: 33285; 36415; 70551; 80053; 80061; 85027; 86769; 90686; 93306; 93880; 94664

== ENCOUNTER 2020-05-22 08:12 | Emergency (ER) | payer OTHER ==
[~2020-05-22] VITALS: Ht 180.3 cm; Wt 81.6 kg
[~2020-05-22 08:12] MED LIST changes: +ALLO100T PO; +BUME0.5T5 PO; +LEVO112T55 PO; +LISI10TA2 PO; +LOVA20TA2 PO; +OMEP40CA27 PO; +SENN-234 PO
[2020-05-22 09:08] LABS: BASOPHILS % (AUTO) 1 % (0-10); EOSINOPHILS # (AUTO) 0.3 10^3/uL (0.0-0.3); EOSINOPHILS % (AUTO) 6 % (0-10); HEMATOCRIT 44 % (40-54); HEMOGLOBIN 14.6 g/dL (13.3-17.7); LYMPHOCYTES # (AUTO) 1.8 10^3/uL (1.0-4.0); LYMPHOCYTES % (AUTO) 33 % (12-44); MEAN CORPUSCULAR HEMOGLOBIN 32 pg (25-34); MEAN CORPUSCULAR HGB CONC 34 g/dL (32-36); MEAN CORPUSCULAR VOLUME 95 fL (80-99); MEAN PLATELET VOLUME 10.5 fL (9.0-12.2); MONOCYTES # (AUTO) 0.5 10^3/uL (0.0-1.0); MONOCYTES % (AUTO) 9 % (0-12); NEUTROPHILS # (AUTO) 2.8 10^3/uL (1.8-7.8); NEUTROPHILS % (AUTO) 52 % (42-75); PLATELET COUNT 213 10^3/uL (130-400); WHITE BLOOD COUNT 5.4 10^3/uL (4.3-11.0)
--- NOTE | 2020-05-22 09:08 | ED Cardiac General ---
History of Present Illness General Chief Complaint: Chest Pain Stated Complaint: HTN Nursing Triage Note: Pt to ED from shelter. Pt reports chest pain and high BP last night. Pt oswaldo pain at time of assessment. Pt c/o cough and headache. Source: patient, police Exam Limitations: no limitations History of Present Illness Date Seen by Provider: May 22, 2020 Time Seen by Provider: 08:35 Initial Comments Patient presents ER by police custody with chief complaint that yesterday evening about 5:00 he started having some substernal moderate chest pain lasting about 20 minutes. He was given 4 tablets of aspirin and some other tablet and the pain went away and never came back. He still has a headache today. No cough but he did have some diarrhea 3 or 4 days ago. He had some nausea when he was having the chest pain. He denies a history of coronary disease but he has hypertension, hyperlipidemia and a history of stroke. He has a implanted loop monitor and a couple months ago followed up with one of the telegraph editor here but he does not remember the name. He says he has been in custody for about a year and has no known sick contacts. No fever or chills. He says he feels general malaise. He takes omeprazole for GERD. He did not take any antacids yesterday for his discomfort. His discomfort was before eating and was not improved by eating. Possible acute stroke in February. Echo showed normal left ventricular functio n and a negative bubble study. No evidence of atrial fibrillation yet. Carotid ultrasound shows mild bilateral plaques. 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 Implantable loop recorder was placed. History of hypertension, TIA, hyperlipidemia and elevated triglycerides but no diabetes or smoking. 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) Allergies and Home Medications Allergies Coded Allergies: codeine (Verified Allergy, Unknown, 05/22/20) Home Medications Allopurinol 100 Mg Tablet, 100 MG PO DAILY, (Reported) Bumetanide 0.5 Mg Tablet, 0.5 MG PO DAILY, (Reported) Levothyroxine Sodium 112 Mcg Tablet, 112 MCG PO DAILY, (Reported) Lisinopril 10 Mg Tablet, 10 MG PO DAILY, (Reported) Lovastatin 20 Mg Tablet, 20 MG PO DAILY, (Reported) Omeprazole 40 Mg Capsule.dr, 40 MG PO DAILY, (Reported) Sennosides 8.6 Mg Tablet, 8.6 MG PO DAILY, (Reported) Patient Home Medication List Home Medication List Reviewed: Yes Review of Systems Review of Systems Constitutional: No chills, No diaphoresis EENTM: No Blurred Vision, No Double Vision Respiratory: Denies Cough, Denies Shortness of Air Cardiovascular: Denies Chest Pain, Denies Lightheadedness Gastrointestinal: Denies Abdominal Pain, Denies Constipated; Diarrhea, Nausea Genitourinary: Denies Burning, Denies Discharge Musculoskeletal: No back pain, No joint pain All Other Systems Reviewed Negative Unless Noted: Yes Past Twssffc-Pqgxcl-Bfamkx Hx Patient Social History Alcohol Use: Denies Use Recreational Drug Use: No 2nd Hand Smoke Exposure: No Recent Foreign Travel: No Contact w/Someone Who Travel: No Recent Infectious Disease Expo: No Immunizations Up To Date Tetanus Booster (TDap): More than 5yrs PED Vaccines UTD: No Past Medical History Surgeries: No Respiratory: No Cardiac: Yes High Cholesterol, Hypertension Neurological: No Stroke Reproductive Disorders: No Sexually Transmitted Disease: No HIV/AIDS: No Genitourinary: No Gastrointestinal: No Musculoskeletal: No Endocrine: Yes Hyperthyroidism Cancer: No Psychosocial: No Integumentary: No Blood Disorders: No Adverse Reaction/Blood Tranf: No Family Medical History Patient reports no known family medical history. Physical Exam Vital Signs Vital Signs - First Documented 05/22/20 08:26 Temp 36.9 Pulse 69 Resp 20 B/P (MAP) 136/82 (100) Pulse Ox 98 O2 Delivery Room Air Capillary Refill : Less Than 3 Seconds Height, Weight, BMI Height: '" Weight: lbs. oz. kg; 25.00 BMI Method:Estimated General Appearance: No Apparent Distress, WD/WN HEENT: PERRL/EOMI, Pharynx Normal, Moist Mucous Membranes Neck: Full Range of Motion, Normal Inspection Respiratory: Chest Non Tender, Lungs Clear, Normal Breath Sounds, No Accessory Muscle Use, No Respiratory Distress Cardiovascular: Regular Rate, Rhythm, No Edema, Normal Peripheral Pulses Gastrointestinal: Normal Bowel Sounds, No Organomegaly, Non Tender, Soft Extremity: Normal Capillary Refill, Normal Inspection, No Pedal Edema Neurologic/Psychiatric: Alert, Oriented x3 Skin: Normal Color, Warm/Dry Progress/Results/Core Measures Results/Orders Lab Results Laboratory Tests Test 05/22/20 08:38 05/22/20 08:45 Range/Units Coronavirus 2019 (SUE) Negative Negative White Blood Count 5.4 4.3-11.0 10^3/uL Red Blood Count 4.58 4.30-5.52 10^6/uL Hemoglobin 14.6 13.3-17.7 g/dL Hematocrit 44 40-54 % Mean Corpuscular Volume 95 80-99 fL Mean Corpuscular Hemoglobin 32 25-34 pg Mean Corpuscular Hemoglobin Concent 34 32-36 g/dL Red Cell Distribution Width 13.8 10.0-14.5 % Platelet Count 213 130-400 10^3/uL Mean Platelet Volume 10.5 9.0-12.2 fL Immature Granulocyte % (Auto) 0 % Neutrophils (%) (Auto) 52 42-75 % Lymphocytes (%) (Auto) 33 12-44 % Monocytes (%) (Auto) 9 0-12 % Eosinophils (%) (Auto) 6 0-10 % Basophils (%) (Auto) 1 0-10 % Neutrophils # (Auto) 2.8 1.8-7.8 10^3/uL Lymphocytes # (Auto) 1.8 1.0-4.0 10^3/uL Monocytes # (Auto) 0.5 0.0-1.0 10^3/uL Eosinophils # (Auto) 0.3 0.0-0.3 10^3/uL Basophils # (Auto) 0.0 0.0-0.1 10^3/uL Immature Granulocyte # (Auto) 0.0 0.0-0.1 10^3/uL Prothrombin Time 13.8 12.2-14.7 SEC INR Comment 1.0 0.8-1.4 Activated Partial Thromboplast Time 33 24-35 SEC Sodium Level 140 135-145 MMOL/L Potassium Level 4.0 3.6-5.0 MMOL/L Chloride Level 108 H 98-107 MMOL/L Carbon Dioxide Level 23 21-32 MMOL/L Anion Gap 9 5-14 MMOL/L Blood Urea Nitrogen 14 7-18 MG/DL Creatinine 1.06 0.60-1.30 MG/DL Estimat Glomerular Filtration Rate > 60 BUN/Creatinine Ratio 13 Glucose Level 93 70-105 MG/DL Calcium Level 10.3 H 8.5-10.1 MG/DL Corrected Calcium 10.1 8.5-10.1 MG/DL Magnesium Level 1.8 1.6-2.4 MG/DL Total Bilirubin 0.6 0.1-1.0 MG/DL Aspartate Amino Transf (AST/SGOT) 18 5-34 U/L Alanine Aminotransferase (ALT/SGPT) 20 0-55 U/L Alkaline Phosphatase 89 40-136 U/L Myoglobin 43.8 10.0-92.0 NG/ML Troponin I < 0.028 <0.028 NG/ML B-Type Natriuretic Peptide 57.1 <100.0 PG/ML Total Protein 7.3 6.4-8.2 GM/DL Albumin 4.2 3.2-4.5 GM/DL Lipase 30 8-78 U/L My Orders Orders - ARVIND BALDWIN Covid 19 Inhouse Test (05/22/20 08:33) Cbc With Automated Diff (05/22/20 09:00) Magnesium (05/22/20 09:00) Chest 1 View, Ap/Pa Only (05/22/20 09:00) Ekg Tracing (05/22/20 09:00) Comprehensive Metabolic Panel (05/22/20 09:00) Myoglobin Serum (05/22/20 09:00) Protime With Inr (05/22/20 09:00) Partial Thromboplastin Time (05/22/20 09:00) O2 (05/22/20 09:00) Monitor-Rhythm Ecg Trace Only (05/22/20 09:00) Lipid Panel (05/23/20 06:00) Ed Iv/Invasive Line Start (05/22/20 09:00) Lipase (05/22/20 09:00) BNP (05/22/20 09:00) Troponin I (05/22/20 09:00) Acetaminophen Tablet (Tylenol Tablet) (05/22/20 09:15) Medications Given in ED Current Medications Medications Dose Ordered Sig/Jordan Route Start Time Stop Time Status Last Admin Dose Admin Acetaminophen 1,000 mg ONCE ONCE PO 05/22/20 09:15 05/22/20 09:16 DC 05/22/20 09:14 1,000 MG Vital Signs/I&O 05/22/20 05/22/20 08:26 08:26 Temp 36.9 Pulse 69 Resp 20 B/P (MAP) 136/82 (100) Pulse Ox 98 O2 Delivery Room Air Room Air Blood Pressure Mean: 100 Progress Progress Note #1: Time: 09:05 Progress Note Short episode of transient chest pain accompanied with nausea. He does have some coronary risk factors. We're going to interrogate his loop monitor and since he is already taking aspirin today and not having any discomfort today we will skip aspirin and nitroglycerin. If he becomes symptomatic we will treat it. A single troponin should be able to rule out if there is any significant coronary disease today. We can have him follow-up with a telegraph editor. Plan to get a chest x-ray and labs as well as a Covid swab as he did have some diarrhea recently, headache and transient chest pain. Progress Note #2: Time: 10:06 Progress Note Spoke to Kay at [employer] and the symptom marker was clicked 11 times since last interrogation and there were no significant recorded changes. Nothing acute Progress Note #3: Time: 11:08 Progress Note The patient is still not having any discomfort. His labs are unremarkable. We are going to have him follow-up with Dr. Martin as Dr. Epperson will not be available over the next few weeks. Interrogation unremarkable. Continue his current medications. We will make sure he has any refills he needs. Initial ECG Impression Date: May 22, 2020 Initial ECG Impression Time: 08:38 Initial ECG Rate: 67 Initial ECG Rhythm: Normal Sinus Initial ECG Intervals: Normal Initial ECG Impression: Normal Comment Normal sinus rhythm without clinically relevant ST changes. Diagnostic Imaging Diagonstic Imaging: Xray Plain Films/CT/US/NM/MRI: chest Comments [facility] [place], [place] NAME: YUNI [facility] REC#: [id number] PT STATUS: REG ER : 1960 PHYSICIAN: ARVIND BALDWIN MD ADMIT DATE: 05/22/20/ER Draft Date of Exam:05/22/20 CHEST 1 VIEW, AP/PA ONLY INDICATION: Chest pain Portable chest 9:42 AM Patient has a loop recorder projecting over the left lower chest. Heart size and pulmonary vascularity are normal. Lungs are clear. There are no effusions or pneumothoraces. IMPRESSION: No acute abnormalities in the chest. Dictated on workstation # [id number] Dict: 05/22/20 0944 Trans: 05/22/20 0945 [facility] [id number] Interpreted by: SINDHU BARAJAS MD Electronically signed by: Reviewed: Reviewed by Me Departure Impression Primary Impression: Chest pain Qualified Codes: R07.1 - Chest pain on breathing Disposition: 01 HOME, SELF-CARE Condition: Stable Departure-Patient Inst. Decision time for Depature: 11:10 Referrals: TALHA MARTIN MD NO,LOCAL PHYSICIAN (PCP) Primary Care Physician Patient Instructions: Chest Pain (DC) Add. Discharge Instructions: Your chest pain may have been caused by your heart but it does not represent a heart attack at this time. It is important that you follow-up in the next week or 2 with a telegraph editor. Return to the ER if you have persistent chest pain, shortness of air or other worrisome symptoms. Continue taking your medications as prescribed. All discharge instructions reviewed with patient and/or family. Voiced understanding. Copy Copies To 1: TALHA MARTIN MD, TITUS J May 22, 2020 09:08
[2020-05-22 09:13] LABS: ALBUMIN 4.2 GM/DL (3.2-4.5); CHLORIDE 108 MMOL/L (98-107); SODIUM 140 MMOL/L (135-145)
[2020-05-22 09:14] LABS: PROTHROMBIN TIME PATIENT 13.8 SEC (12.2-14.7)
[2020-05-22 09:15] LABS: CALCIUM 10.3 MG/DL (8.5-10.1)
[2020-05-22] MEDS ORDERED: ACETAMINOPHEN 500 MG TAB (TYLENOL) PO ONE (09:15)
[2020-05-22 09:16] LABS: GLUCOSE 93 MG/DL (70-105); TOTAL PROTEIN 7.3 GM/DL (6.4-8.2)
[2020-05-22 09:17] LABS: CARBON DIOXIDE 23 MMOL/L (21-32)
[2020-05-22 09:18] LABS: BILIRUBIN,TOTAL 0.6 MG/DL (0.1-1.0)
[2020-05-22 09:19] LABS: ALKALINE PHOSPHATASE 89 U/L (40-136); CREATININE SERUM 1.06 MG/DL (0.60-1.30); GFR ESTIMATED > 60
[2020-05-22 09:20] LABS: BUN/CREATININE RATIO 13
[2020-05-22 09:22] LABS: ALANINE AMINOTRANSFERASE 20 U/L (0-55); MAGNESIUM 1.8 MG/DL (1.6-2.4)
[2020-05-22 09:23] LABS: LIPASE 30 U/L (8-78)
--- NOTE | 2020-05-22 09:45 | Diagnostic Imaging Report ---
INDICATION: Chest pain Portable chest 9:42 AM Patient has a loop recorder projecting over the left lower chest. Heart size and pulmonary vascularity are normal. Lungs are clear. There are no effusions or pneumothoraces. IMPRESSION: No acute abnormalities in the chest. Dictated by: Dictated on workstation # [id number]
[2020-05-22 11:30] VITALS: BP 131/86
== END 2020-05-22 11:31 | disposition home or self-care (01) ==
LOC: EDUNIT# 08:12 → ER 08:14
DX: R07.9 Chest pain, unspecified (principal); I10 Essential (primary) hypertension; E05.90 Thyrotoxicosis, unspecified without thyrotoxic crisis or storm; E78.00 Pure hypercholesterolemia, unspecified; Z88.5 Allergy status to narcotic agent; Z20.828 Contact with and (suspected) exposure to other viral communicable diseases
CPT/HCPCS: 71045; 80053; 83690; 83735; 83874; 83880; 84484; 85025; 85610; 85730; 93041; 99284; U0002; 36415; 87635; 93005

== ENCOUNTER 2020-06-11 08:34 | Emergency (ER) | payer OTHER ==
[~2020-06-11] VITALS: Ht 180 cm; Wt 81.0 kg
[2020-06-11 08:45] VITALS: BP 124/78
[2020-06-11 08:57] LABS: BASOPHILS % (AUTO) 0 % (0-10); EOSINOPHILS # (AUTO) 0.3 10^3/uL (0.0-0.3); EOSINOPHILS % (AUTO) 3 % (0-10); HEMATOCRIT 42 % (40-54); HEMOGLOBIN 14.4 g/dL (13.3-17.7); LYMPHOCYTES # (AUTO) 2.4 10^3/uL (1.0-4.0); LYMPHOCYTES % (AUTO) 27 % (12-44); MEAN CORPUSCULAR HEMOGLOBIN 32 pg (25-34); MEAN CORPUSCULAR HGB CONC 34 g/dL (32-36); MEAN CORPUSCULAR VOLUME 94 fL (80-99); MEAN PLATELET VOLUME 10.2 fL (9.0-12.2); MONOCYTES % (AUTO) 12 % (0-12); NEUTROPHILS # (AUTO) 5.1 10^3/uL (1.8-7.8); NEUTROPHILS % (AUTO) 58 % (42-75); PLATELET COUNT 201 10^3/uL (130-400); WHITE BLOOD COUNT 8.9 10^3/uL (4.3-11.0)
[2020-06-11] MEDS ORDERED: LOSA25TA41 (08:58)
[2020-06-11 09:09] LABS: ALBUMIN 4.1 GM/DL (3.2-4.5); CHLORIDE 111 MMOL/L (98-107); POTASSIUM 3.8 MMOL/L (3.6-5.0); SODIUM 142 MMOL/L (135-145)
[2020-06-11 09:11] LABS: CALCIUM 10.3 MG/DL (8.5-10.1)
[2020-06-11 09:12] LABS: GLUCOSE 92 MG/DL (70-105); TOTAL PROTEIN 7.4 GM/DL (6.4-8.2)
[2020-06-11] MEDS: NITROGLYCERIN 0.4 MG SL TABS BTL 25'S SL PRN ×3 (09:12→09:46)
[2020-06-11 09:13] LABS: CARBON DIOXIDE 19 MMOL/L (21-32)
[2020-06-11 09:14] LABS: BILIRUBIN,TOTAL 0.8 MG/DL (0.1-1.0)
[2020-06-11 09:15] LABS: ALKALINE PHOSPHATASE 82 U/L (40-136); CREATININE SERUM 1.04 MG/DL (0.60-1.30); GFR ESTIMATED > 60
[2020-06-11] MEDS ORDERED: ASPIRIN 81 MG CHEW (CHILDREN'S ASA) PO ONE (09:15)
[2020-06-11] MEDS ORDERED: NS IV 1000 ML 1,000 ML IV ONE (09:15)
[2020-06-11 09:16] LABS: BUN/CREATININE RATIO 13; PROTHROMBIN TIME PATIENT 14.6 SEC (12.2-14.7)
[2020-06-11 09:17] LABS: INR 1.1 (0.8-1.4)
[2020-06-11 09:18] LABS: ALANINE AMINOTRANSFERASE 18 U/L (0-55); MAGNESIUM 1.8 MG/DL (1.6-2.4)
--- NOTE | 2020-06-11 09:18 | Diagnostic Imaging Report ---
INDICATION: Chest pain COMPARISON: 05/22/2020 FINDINGS: Single frontal view of the chest demonstrates normal heart size and pulmonary vascularity. The lungs are well aerated and clear. No large pleural effusion or pneumothorax is seen. The visualized osseous structures show no acute abnormalities. IMPRESSION: 1. No acute cardiopulmonary process. Dictated by: Dictated on workstation # [id number]
[2020-06-11] MEDS ORDERED: NS IV 1000 ML 1,000 ML IV SCH (10:45)
--- NOTE | 2020-06-11 10:46 | NUR ---
in talking to the pt at this time.
[2020-06-11 10:48] LABS: FREE T4 (FREE THYROXINE) 1.14 NG/DL (0.70-1.48)
--- NOTE | 2020-06-11 12:18 | ED Chest Pain ---
General Chief Complaint: Chest Pain Stated Complaint: CHEST PAIN Nursing Triage Note: ARRIVED VIA AMB ESCORTED BY POLICE IN HANDCUFFS WITH COMPLAINTS OF CHEST PAIN STARTING YESTERDAY AFTER SUPPER. STATES HIS BP HAS BEEN HIGH ALSO. DENIES CP AT THIS TIME. 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 He actually has 2 separate pains. The first is in his left upper chest and the second is in his left shoulder that appears musculoskeletal in nature. The chest pain seems to be dissipating. Patient is also concerned about hypertension. He had an admission to the hospital earlier in the year for stroke symptoms. A loop recorder was placed due to concern for cryptogenic stroke. He also had an ER visit during which cardiology follow-up for stress testing was recommended. He has not yet had that follow-up. Patient is also concerned about his blood pressure being high. However, his blood pressure is normal on assessment. He denies any alleviating or exacerbating factors that affect his pain. Allergies and Home Medications Allergies Coded Allergies: codeine (Verified Allergy, Unknown, 05/22/20) Home Medications Allopurinol 100 Mg Tablet, 100 MG PO DAILY, (Reported) Bumetanide 0.5 Mg Tablet, 0.5 MG PO DAILY, (Reported) Levothyroxine Sodium 112 Mcg Tablet, 112 MCG PO DAILY, (Reported) Lisinopril 10 Mg Tablet, 10 MG PO DAILY, (Reported) Lovastatin 20 Mg Tablet, 20 MG PO DAILY, (Reported) Omeprazole 40 Mg Capsule.dr, 40 MG PO DAILY, (Reported) Sennosides 8.6 Mg Tablet, 8.6 MG PO DAILY, (Reported) Patient Home Medication List Home Medication List Reviewed: Yes Review of Systems Review of Systems Constitutional: no symptoms reported EENTM: No Symptoms Reported Respiratory: No Symptoms Reported Cardiovascular: See HPI Gastrointestinal: No Symptoms Reported Genitourinary: No Symptoms Reported Musculoskeletal: see HPI Skin: no symptoms reported Psychiatric/Neurological: No Symptoms Reported Endocrine: No Symptoms Reported Hematologic/Lymphatic: No Symptoms Reported Past Svdafde-Ejvmre-Ljakmg Hx Patient Social History Alcohol Use: Denies Use Recreational Drug Use: No Smoking Status: Never a Smoker 2nd Hand Smoke Exposure: No Recent Foreign Travel: No Contact w/Someone Who Travel: No Recent Infectious Disease Expo: No Immunizations Up To Date Tetanus Booster (TDap): More than 5yrs PED Vaccines UTD: No Past Medical History Surgeries: Yes Cardiac (loop recorder) Respiratory: No Cardiac: Yes High Cholesterol, Hypertension Neurological: No Stroke Reproductive Disorders: No Sexually Transmitted Disease: No HIV/AIDS: No Genitourinary: No Gastrointestinal: No Musculoskeletal: No Endocrine: Yes Hyperthyroidism Cancer: No Psychosocial: No Integumentary: No Blood Disorders: No Adverse Reaction/Blood Tranf: No Family Medical History Patient reports no known family medical history. Physical Exam Vital Signs Vital Signs - First Documented 06/11/20 08:45 Temp 37.0 Pulse 82 Resp 16 B/P (MAP) 124/78 (93) Pulse Ox 98 O2 Delivery Room Air Capillary Refill : Less Than 3 Seconds Height, Weight, BMI Height: '" Weight: lbs. oz. 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 Norm as Tested Skin: Normal Color, Warm/Dry Progress/Results/Core Measures Results/Orders Lab Results Laboratory Tests Test 06/11/20 08:50 06/11/20 11:03 06/11/20 14:00 Range/Units White Blood Count 8.9 4.3-11.0 10^3/uL Red Blood Count 4.48 4.30-5.52 10^6/uL Hemoglobin 14.4 13.3-17.7 g/dL Hematocrit 42 40-54 % Mean Corpuscular Volume 94 80-99 fL Mean Corpuscular Hemoglobin 32 25-34 pg Mean Corpuscular Hemoglobin Concent 34 32-36 g/dL Red Cell Distribution Width 13.5 10.0-14.5 % Platelet Count 201 130-400 10^3/uL Mean Platelet Volume 10.2 9.0-12.2 fL Immature Granulocyte % (Auto) 0 % Neutrophils (%) (Auto) 58 42-75 % Lymphocytes (%) (Auto) 27 12-44 % Monocytes (%) (Auto) 12 0-12 % Eosinophils (%) (Auto) 3 0-10 % Basophils (%) (Auto) 0 0-10 % Neutrophils # (Auto) 5.1 1.8-7.8 10^3/uL Lymphocytes # (Auto) 2.4 1.0-4.0 10^3/uL Monocytes # (Auto) 1.0 0.0-1.0 10^3/uL Eosinophils # (Auto) 0.3 0.0-0.3 10^3/uL Basophils # (Auto) 0.0 0.0-0.1 10^3/uL Immature Granulocyte # (Auto) 0.0 0.0-0.1 10^3/uL Prothrombin Time 14.6 12.2-14.7 SEC INR Comment 1.1 0.8-1.4 Activated Partial Thromboplast Time 35 24-35 SEC Sodium Level 142 135-145 MMOL/L Potassium Level 3.8 3.6-5.0 MMOL/L Chloride Level 111 H 98-107 MMOL/L Carbon Dioxide Level 19 L 21-32 MMOL/L Anion Gap 12 5-14 MMOL/L Blood Urea Nitrogen 14 7-18 MG/DL Creatinine 1.04 0.60-1.30 MG/DL Estimat Glomerular Filtration Rate > 60 BUN/Creatinine Ratio 13 Glucose Level 92 70-105 MG/DL Calcium Level 10.3 H 8.5-10.1 MG/DL Corrected Calcium 10.2 H 8.5-10.1 MG/DL Magnesium Level 1.8 1.6-2.4 MG/DL Total Bilirubin 0.8 0.1-1.0 MG/DL Aspartate Amino Transf (AST/SGOT) 16 5-34 U/L Alanine Aminotransferase (ALT/SGPT) 18 0-55 U/L Alkaline Phosphatase 82 40-136 U/L Myoglobin 35.2 10.0-92.0 NG/ML Troponin I < 0.028 < 0.028 < 0.028 <0.028 NG/ML Total Protein 7.4 6.4-8.2 GM/DL Albumin 4.1 3.2-4.5 GM/DL Thyroid Stimulating Hormone (TSH) 1.66 0.35-4.94 UIU/ML Free Thyroxine 1.14 0.70-1.48 NG/DL My Orders Orders - ODILON MONTE MD Cbc With Automated Diff (06/11/20 08:39) Magnesium (06/11/20 08:39) Chest 1 View, Ap/Pa Only (06/11/20 08:39) Ekg Tracing (06/11/20 08:39) Comprehensive Metabolic Panel (06/11/20 08:39) Myoglobin Serum (06/11/20 08:39) Protime With Inr (06/11/20 08:39) Partial Thromboplastin Time (06/11/20 08:39) O2 (06/11/20 08:39) Monitor-Rhythm Ecg Trace Only (06/11/20 08:39) Ed Iv/Invasive Line Start (06/11/20 08:39) Troponin I (06/11/20 08:39) Nitroglycerin 0.4 Mg Btl 25's (Nitrostat (06/11/20 09:15) Aspirin Chewable Tablet (Baby Aspirin Ch (06/11/20 09:15) Ns Iv 1000 Ml (Sodium Chloride 0.9%) (06/11/20 09:15) Thyroid Stimulating Hormone (06/11/20 10:11) Free T4 (Free Thyroxine) (06/11/20 10:11) Ns Iv 1000 Ml (Sodium Chloride 0.9%) (06/11/20 10:45) Troponin I (06/11/20 11:00) Troponin I (06/11/20 14:00) Ketorolac Injection (Toradol Injection) (06/11/20 14:45) Medications Given in ED Current Medications Medications Dose Ordered Sig/Jordan Route Start Time Stop Time Status Last Admin Dose Admin Aspirin 324 mg ONCE ONCE PO 06/11/20 09:15 06/11/20 09:16 DC 06/11/20 09:12 324 MG Ketorolac Tromethamine 15 mg ONCE ONCE IVP 06/11/20 14:45 06/11/20 14:46 DC 06/11/20 14:50 15 MG Nitroglycerin 0.4 mg UD PRN SL 06/11/20 09:15 06/11/20 09:46 DC 06/11/20 09:46 0.4 MG Sodium Chloride 1,000 ml @ 0 mls/hr Q0M ONCE IV 06/11/20 09:15 06/11/20 09:16 DC 06/11/20 09:13 1,000 MLS/HR Vital Signs/I&O 06/11/20 08:45 Temp 37.0 Pulse 82 Resp 16 B/P (MAP) 124/78 (93) Pulse Ox 98 O2 Delivery Room Air Blood Pressure Mean: 93 Progress Progress Note : Progress Note Patient received nitroglycerin x3 and aspirin. Nitroglycerin seemed to correlat e with dissipation of his pain. Initial troponin and a repeat 2-hour troponin were both negative. I then discussed the case with Dr. Butelr. He was agreeable to clinic follow-up if a third troponin was negative and patient remained pain-free. Both of these criteria were satisfied and patient was discharged with the guard. Toradol was given for the shoulder pain. Initial ECG Impression Date: Jun 11, 2020 Initial ECG Impression Time: 08:44 Initial ECG Rate: 82 Initial ECG Rhythm: Normal Sinus Initial ECG Intervals: Normal Comment Normal sinus rhythm with no ST elevation or depression. No abnormal intervals or axis deviation. Flattened T waves in leads II and III. Diagnostic Imaging Diagonstic Imaging: Xray Plain Films/CT/US/NM/MRI: chest Comments NAME: YUNI [facility] REC#: [id number] PT STATUS: DEP ER : 1960 PHYSICIAN: ODILON MONTE MD ADMIT DATE: 06/11/20/ER Signed Date of Exam:06/11/20 CHEST 1 VIEW, AP/PA ONLY INDICATION: Chest pain COMPARISON: 05/22/2020 FINDINGS: Single frontal view of the chest demonstrates normal heart size and pulmonary vascularity. The lungs are well aerated and clear. No large pleural effusion or pneumothorax is seen. The visualized osseous structures show no acute abnormalities. IMPRESSION: 1. No acute cardiopulmonary process. Dictated by: Dictated on workstation # [id number] Dict: 06/11/20 0917 Trans: 06/11/[address] [facility] [id number] Interpreted by: ALBER FLORENCE MD Electronically signed by: ALBER FLORENCE MD 06/11/20 1632 Departure Impression Primary Impression: Chest pain Qualified Codes: R07.9 - Chest pain, unspecified Additional Impression: Left shoulder pain Qualified Codes: M25.512 - Pain in left shoulder; G89.29 - Other chronic pain Disposition: 01 HOME, SELF-CARE Condition: Improved Departure-Patient Inst. Decision time for Depature: 12:13 Referrals: EPHRAIM BUTLER MD [facility] ,LOCAL PHYSICIAN (PCP) Primary Care Physician Patient Instructions: Chest Pain Add. Discharge Instructions: For your shoulder pain you may take Tylenol (acetaminophen) up to 1000 mg every 6 hours as needed and/or ibuprofen up to 600 mg every 6 hours as needed[address] Call Dr. Butler's office this afternoon to schedule appointment for tomorrow. Continue with your aspirin and other medications as previously prescribed. Return to the emergency room with persistent recurrent chest pain or other concerns. With concerns about blood pressure or other maintenance medical issues, please contact the pen[facility]entiary provider stone sandblaster. All discharge instructions reviewed with patient and/or family. Voiced understanding. Copy Copies To 1: EPHRAIM BUTLER MD [facility] ODILON MONTE MD Jun 11, 2020 12:18
[2020-06-11] MEDS ORDERED: KETOROLAC 30 MG/ML VIAL IVP ONE (14:45)
== END 2020-06-11 14:55 | disposition home or self-care (01) ==
LOC: EDUNIT# 08:34 → ER 08:36
DX: R07.9 Chest pain, unspecified (principal); M25.512 Pain in left shoulder; I10 Essential (primary) hypertension; E78.00 Pure hypercholesterolemia, unspecified; Z88.5 Allergy status to narcotic agent
CPT/HCPCS: 36415; 71045; 80053; 83735; 83874; 84439; 84443; 84484; 85025; 85610; 85730; 93005; 93041

== ENCOUNTER → 2020-08-04 | Outpatient (CLI) | payer OTHER ==
[~2020-08-04] VITALS: Ht 180 cm; Wt 86.0 kg
[~2020-08-04] MED LIST changes: +CATHETER FLUSH 10 ML SYR IV PRN; -LISI10TA2 PO; +LISI10TA25 PO; +LOSA25TA41; +REGADENOSON 0.4 MG/5 ML SYR (LEXISCAN) IV ONE
[2020-08-04 09:17] VITALS: BP 143/75
--- NOTE | 2020-08-04 13:18 | STRESS TEST ---
DATE OF SERVICE: 08/04/2020 RESTING AND POST REGADENOSON TECHNETIUM-99M TETROFOSMIN PET CT IMAGING ORDERING PHYSICIAN: Orin Chao APRN PRIMARY PHYSICIAN: Dr. Johnson. CLINICAL DIAGNOSIS: Chest discomfort. Baseline images were carried out after injection of 10.71 mCi of technetium-99m Tetrofosmin. This was followed by 0.4 mg regadenoson and 30.6 mCi of technetium-99m Tetrofosmin for stress imaging. The electrocardiogram showed sinus rhythm at baseline. It did not change significantly with regadenoson infusion. The patient noted some shortness of breath, abdominal discomfort and headache following regadenoson infusion, which resolved in a few minutes. Review of images at rest and following stress does not indicate any significant perfusion defects consistent with myocardial ischemia or infarction. Gated images show normal global left ventricular systolic function with normal regional wall motion. Left ventricular ejection fraction is calculated to be 59%. Left ventricular end diastolic volume is 108 mL. CONCLUSIONS: 1. No evidence of myocardial ischemia or infarction on this study. 2. Mild cardiomegaly. 3. Normal global left ventricular systolic function with a calculated ejection fraction of 59%. Job ID: [id number] DocumentID: [id number] Dictated Date: 08/04/2020 12:32:49 Senior Relationship Manager Date: 08/04/2020 13:17:45 Dictated By: EPHRAIM JOHNSON MD, MA, FACP, FACC,
== END ==
LOC: CARD 09:45
PROVIDERS: ATTEND Nurse Practitioner Family
DX: I51.7 Cardiomegaly (principal)
CPT/HCPCS: 78452; 93017; A9502